=== PATIENT | female | born 1950 | race Caucasian/White ===

== ENCOUNTER 2022-05-05 10:58 | Emergency (ER) | payer MEDICARE ==
[~2022-05-05] VITALS: Ht 162.6 cm; Wt 84.5 kg
[2022-05-05 11:32] VITALS: TEMP 97.1
[2022-05-05 12:24] LABS: BASO % 0.2 % (0.0-2.0); GRAN # 8.7 K/mm3 (1.4-6.5); GRAN % 89.1 % (42.2-75.2); HEMATOCRIT 42.8 % (37.0-47.0); HEMOGLOBIN 13.8 g/dl (12.5-16.0); LYMPH # 0.7 K/mm3 (1.2-3.4); MEAN CELL VOLUME 92 fl (80.0-100.0); MEAN CORPUSCULAR HEMOGLOBIN 30 pg (27-31); MEAN CORPUSCULAR HGB CONC 32 g/dl (33.0-37.0); MEAN PLATELET VOLUME 9.8 fl (7.4-10.4); MONO # 0.3 K/mm3 (0.1-0.6); MONO % 3.3 % (1.7-9.3); PLATELET COUNT 337 K/mm3 (130-400); RED BLOOD COUNT 4.67 M/mm3 (4.10-5.30); REDCELL DISTRIBUTION WIDTH-CV 13.5 % (11.5-14.5)
[2022-05-05 12:55] LABS: ALBUMIN 3.3 gm/dL (3.4-4.8); BILIRUBIN,TOTAL 0.2 mg/dL (0.2-1.2); C-REACTIVE PROTEIN 0.34 mg/dL (0.00-0.50); CALCIUM 9.5 mg/dL (8.4-10.2); CREATININE, serum 1.42 mg/dL (0.57-1.11); POTASSIUM 4.3 mmol/L (3.5-4.5); TOTAL PROTEIN 6.6 gm/dL (6.2-8.1)
[2022-05-05 13:21] LABS: COLLECTION METHOD CLEAN CATCH
[2022-05-05 13:33] LABS: MUCOUS Present (NOT PRESENT); PH 5 (5-8); URINE APPEARANCE Hazy (CLEAR/HAZY); URINE BACTERIA None Seen /hpf (NONE SEEN); URINE BILIRUBIN Negative (NEGATIVE); URINE BLOOD Negative (NEGATIVE); URINE COLOR Amber (YELLOW); URINE GLUCOSE 3+ (NEGATIVE); URINE KETONE Trace (NEGATIVE); URINE LEUKOCYTE ESTERASE Negative (NEGATIVE); URINE NITRATE Negative (NEGATIVE); URINE PROTEIN(semi-quant) 1+ (NEGATIVE); URINE UROBILINOGEN Negative (NEGATIVE)
[2022-05-05 16:42] LABS: CALCIUM 8.4 mg/dL (8.4-10.2); CREATININE, serum 1.02 mg/dL (0.57-1.11); POTASSIUM 4.1 mmol/L (3.5-4.5)
[2022-05-05] MEDS ORDERED: ZOFRAN ODT4 MG PO (17:47)
[2022-05-05 18:14] VITALS: BP 152/90; PULSE 92
== END 2022-05-05 18:16 | disposition home or self-care (01) ==
LOC: COL.ER 10:58
PROVIDERS: Family Medicine
DX: E11.9 Type 2 diabetes mellitus without complications (principal); E86.0 Dehydration; Z20.822 Contact with and (suspected) exposure to COVID-19
CPT/HCPCS: J7030

== ENCOUNTER → 2024-06-18 | Outpatient (CLI) | payer MEDICARE ==
[~2024-06-18] MED LIST: ARICEPT10 MG PO; ASPIRIN 81M81 MG/TA2 PO; ATIVAN 0.50.5 MG/TAB PO; CLARITIN 1010 MG/TAB PO; COZAAR 25MG25 MG/TAB PO; CYMBALTA 60MG60 MG PO; DULCOLAX TAB5 MG PO; FERROUSAL325 MG PO; FISH OIL 1000MG1 CAP PO; FLONASEALLERGY INH; NEXIUM 24HR20 M1 PO; NOVOLOG FLEX100 U/ML SQ; OMEGA-31 SGL PO; OSCAL 500 TAB500 MG PO; OZEMPIC0.25 MG/02 SQ; OZEMPIC2 MG/0.75 SQ; PERCOCET 325 MG1 TA2 PO; PREDFORTE15ML OU; PREDFORTE5ML OP; SELENIUM SULFIDE LOT TOP; SENOKOT S 50 MG1 TAB PO; SYNTHROID 0.0.025 MG PO; TESSALON PERLE200 MG PO; TRESIBA FL100 UNIT/1 SQ; TRICOR 48MG48 MG PO; TYLENOL 325MG325 MG PO; ZANAFLEX2 MG PO; ZETIA 10MG TAB10 MG PO; ZOFRAN ODT4 MG PO
[2024-06-18 14:24] LABS: CHOLESTEROL RISK RATIO 3.7
== END ==
LOC: COL.LAB 13:36
PROVIDERS: Family Medicine
DX: E78.00 Pure hypercholesterolemia, unspecified (principal)